=== PATIENT | male | born 1940 | race Caucasian/White ===

== ENCOUNTER 2018-08-16 13:00 | Day surgery (SDC) | payer OTHER ==
[~2018-08-16] VITALS: Ht 175.3 cm; Wt 118.4 kg
[~2018-08-16 13:00] MED LIST: ACYC400T4 PO; ASPI-515 PO; DICL25TA PO; GABA-826 PO; HYDR-3245 PO; LORA1TAB PO; LOSA1TAB25 PO; MELO15TA24 PO; OMEP40CA6 PO; OXYC-295 PO; TAMS0.4C2 PO
[2018-08-16] MEDS ORDERED: LACTATED RINGERS 1,000 ML IV SCH (13:39)
[2018-08-16 13:41] VITALS: BP 112/77
[2018-08-16] MEDS ORDERED: ZOLP10TA5 PO (13:50)
[2018-08-16 14:17] LABS: ALANINE AMINOTRANSFERASE 77 U/L (12-78); ALBUMIN 4.1 g/dL (3.4-5.0); ANION GAP 10 mmol/L (5-15); CALCIUM 9.8 mg/dL (8.5-10.1); CHLORIDE 106 mmol/L (98-107)
[2018-08-16 14:19] LABS: ALKALINE PHOSPHATASE 58 U/L (45-117); BILIRUBIN,TOTAL 1.1 mg/dL (0.2-1.0); TOTAL PROTEIN 7.2 g/dL (6.4-8.2)
[2018-08-16] MEDS ORDERED: LORazepam 1MG TABLET PO ONE (14:30)
[2018-08-16] MEDS ORDERED: MIDAZOLAM 1 MG/ML, 2ML ONE (15:22)
[2018-08-16] MEDS ORDERED: DEXMEDETOMIDINE 200 MCG/2 ML ONE (15:22)
[2018-08-16] MEDS ORDERED: FENTANYL PF 100 MCG/2ML ONE (15:22)
[2018-08-16] MEDS ORDERED: SUCCINYLCHOLINE 20 MG/ML, 10ML ONE (15:30)
[2018-08-16] MEDS ORDERED: PROPOFOL 10 MG/ML, 20ML ONE (15:30)
[2018-08-16] MEDS ORDERED: EPHEDRINE 50 MG/ML, 1ML ONE (15:30)
[2018-08-16] MEDS ORDERED: ONDANSETRON ODT 8 MG PO PRN (16:30)
[2018-08-16] MEDS ORDERED: FENTANYL PF 100 MCG/2ML IV PRN (16:30)
[2018-08-16] MEDS ORDERED: ONDANSETRON 2MG/ML, 2ML IV PRN (16:30)
[2018-08-16] MEDS ORDERED: OXYcodone 5 MG/5 ML ORAL.SOL UDC PO PRN (16:30)
[2018-08-16] MEDS ORDERED: ACETAMINOPHEN 325 MG TABLET PO PRN (16:30)
== END 2018-08-16 18:00 | disposition home or self-care (01) ==
LOC: OUT 13:00 → EDSTATUS 14:30 → OUT 18:00
PROVIDERS: ATTEND Physical Medicine & Rehabilitation
DX: M51.36 Other intervertebral disc degeneration, lumbar region (principal); M51.26 Other intervertebral disc displacement, lumbar region; Z88.0 Allergy status to penicillin; I10 Essential (primary) hypertension; Z87.891 Personal history of nicotine dependence
CPT/HCPCS: 36415; 72148; 80053; 93005; J0330; J2250; J2704; J3010; J7120